=== PATIENT | male | born 1970 | race Caucasian/White ===

== ENCOUNTER → 2016-12-22 | Outpatient (CLI) | payer BC ==
--- NOTE | 2016-12-23 12:16 | CR ---
EXAM DATE: 12/22/16 PATIENT'S AGE: 46 Patient: [facility] Facility: [place], [place] Site . Site : 1970 Study: XRay Chest [id number] 4:25:20 PM Ordering Physician: Leti Menendez Final Report: Indication: Cough and fever. Technique: PA and lateral views of the chest. Comparison: None. Findings: The cardiac, mediastinal and hilar contours are normal. Normal pulmonary vasculature. Lungs are clear. Specifically, there are no appreciable airspace opacities to suggest pneumonia. No pleural fluid or pneumothorax. No acute bony abnormality. Impression: No signs of acute thoracic disease. Dictated by Tae Delaney MD @ Dec 23 2016 10:11AM (Electronic Signature) Report Signed by Proxy. [facility] CENTERAnisha
== END | disposition home or self-care (01) ==
LOC: MW.CHFP 15:54
PROVIDERS: ATTEND Physician Assistant
DX: R05 Cough (principal)
CPT/HCPCS: 36415; 71020; 71020-26; 85025